=== PATIENT | male | born 1985 | race Caucasian/White ===

== ENCOUNTER 2018-10-21 03:26 | Emergency (ER) | payer BC ==
[~2018-10-21] VITALS: Ht 170.2 cm; Wt 81.2 kg
[2018-10-21] MEDS ORDERED: IBUPROFEN400 MG PO (04:06)
[2018-10-21] MEDS ORDERED: PENCILLIN V PO250 MG PO (04:07)
[2018-10-21] MEDS ORDERED: ULTRAM50 MG PO (04:08)
== END 2018-10-21 04:40 | disposition home or self-care (01) ==
LOC: FSED 03:26
DX: R68.84 Jaw pain (principal); K08.89 Other specified disorders of teeth and supporting structures
CPT/HCPCS: 99282